=== PATIENT | female | born 1985 | race Caucasian/White ===

== ENCOUNTER 2018-12-27 20:28 | Inpatient (IN) | payer OTHER ==
[~2018-12-27] VITALS: Ht 165.1 cm; Wt 72.7 kg
[2018-12-28] VITALS (21 sets, daily range): BP systolic 75–117; BP diastolic 41–76; PULSE 44–71; RESP 16–23; Ht 165.1 cm; Wt 72.7 kg
[2018-12-28] MEDS ORDERED: DEXTROSE 5%-0.45% NACL 1,000 ML IV SCH (03:08)
[2018-12-28] MEDS ORDERED: NACL 0.9% 3 ML SYG IV SCH (03:30)
[2018-12-28] MEDS ORDERED: ONDANSETRON 4 MG INJ IV PRN ×2 (03:30→12:00)
[2018-12-28] MEDS: ACETAMINOPHEN 325 MG TAB PO PRN ×3 (03:38→20:36)
[2018-12-28] MEDS ORDERED: PANTOPRAZOLE 40 MG INJ IV SCH ×2 (06:00→18:00)
--- NOTE | 2018-12-28 06:13 | HP ---
Date/Time of Note Date/Time of Note DATE: 12/28/18 TIME: 06:10 Assessment/Plan VTE Prophylaxis Pharmacological prophylaxis: heparin Lines/Catheters IV [facility]ter Type ([facility] [place] Assessment/Plan Assessment/Plan 1. GI bleed: Positive for for FOBT at outside hospital -Patient has been taking NSAIDs -Repeat stool OB -PPI -Monitor H&H closely -GI consult 2. Epigastric abdominal pain: Gastritis versus PUD -Patient has been taking NSAIDs so this could be the etiology -PPI -See #1 as well HPI/ROS Admit Date/Time Admit Date/Time Dec 28, 2018 at 01:16 Hx of Present Illness Patient is a 33-year-old female with no significant past medical history who initially presented on outside hospital complaining of abdominal pain. Pain is mostly centered in the epigastric area. She reported that she has been taking NSAIDs. FOBT was positive at the outside facility. She was transferred to [facility] for insurance reason. PMH/Family/Social Past Medical History Past Surgical Hx: other Family History Significant Family History: no pertinent family hx Social History Alcohol Use: none Smoking Status: Never smoker Drug Use: none Exam Constitutional: other (No acute distress) Head: normocephalic, atraumatic Eyes: EOMI, PERRL Respiratory: clear to auscultation, normal air movement Cardiovascular: regular rate and rhythm Gastrointestinal: soft Extremities: normal pulses Medications Current Medications Dextrose/Sodium Chloride 1,000 ml @ 100 mls/hr Q10H IV Last administered on 12/28/18at 03:32; Admin Dose 100 MLS/HR; Start 12/28/18 at 03:08 IV Flush (NS 3 ml) 3 ml PER PROTOCOL IV ; Start 12/28/18 at 03:30 Ondansetron HCl (Zofran Inj) 4 mg Q6H PRN IV NAUSEA/VOMITING; Start 12/28/18 at 03:30 Acetaminophen (Tylenol Tab) 650 mg Q6H PRN PO .PAIN 1-3 OR TEMP Last administered on 12/28/18at 03:38; Admin Dose 650 MG; Start 12/28/18 at 03:30 Pantoprazole (Protonix Iv) 40 mg DAILY@06 IV ; Start 12/28/18 at 06:00 Coded Allergies: No Known Allergy (Unverified , 12/28/18) Social History Smoking Status: Never smoker Exam/Review of Systems Vital Signs Vitals Vital Signs Date Temp Pulse Resp B/P (MAP) Pulse Ox O2 O2 Flow FiO2 Time Delivery Rate 12/28/18 99.2 70 19 96/63 (74 95 02:47 JENNIE BUCK MD Dec 28, 2018 06:13
[2018-12-28] MEDS ORDERED: SOD CHLORIDE 0.9% 1,000 ML IV ONE (08:00)
[2018-12-28] MEDS ORDERED: POTASSIUM CHLORIDE 100 ML IVPB SCH (08:00)
--- NOTE | 2018-12-28 08:54 | PN ---
Date/Time of Note Date/Time of Note DATE: 12/28/18 TIME: 08:54 Objective Vitals Vital Signs Date Temp Pulse Resp B/P (MAP) Pulse Ox O2 O2 Flow FiO2 Time Delivery Rate 12/28/18 61 90/62 (71) 07:46 12/28/18 98.3 20 99 07:08 Intake and Output 12/27/18 12/27/18 12/28/18 1515:00 23:00 07:00 IntakeIntake Total 700 ml BalanceBalance 700 ml Results Result Diagram: 12/28/18 0514 12/28/18 0514 Medications Medications Current Medications Dextrose/Sodium Chloride 1,000 ml @ 100 mls/hr Q10H IV Last administered on 12/28/18at 03:32; Admin Dose 100 MLS/HR; Start 12/28/18 at 03:08 IV Flush (NS 3 ml) 3 ml PER PROTOCOL IV ; Start 12/28/18 at 03:30 Ondansetron HCl (Zofran Inj) 4 mg Q6H PRN IV NAUSEA/VOMITING; Start 12/28/18 at 03:30 Acetaminophen (Tylenol Tab) 650 mg Q6H PRN PO .PAIN 1-3 OR TEMP Last adminis tered on 12/28/18at 03:38; Admin Dose 650 MG; Start 12/28/18 at 03:30 Sodium Chloride 1,000 ml @ 1,000 mls/hr Q1H ONCE IV Last administered on 12/28/18at 08:09; Admin Dose 1,000 MLS/HR; Start 12/28/18 at 08:00; Stop 12/28/18 at 08:59 Potassium Chloride 100 ml @ 50 mls/hr Q2H IVPB Last administered on 12/28/18at 08:10; Admin Dose 50 MLS/HR; Start 12/28/18 at 08:00; Stop 12/28/18 at 13:59 Pantoprazole (Protonix Iv) 40 mg BID IV ; Start 12/28/18 at 09:00; Status UNV Lines/Catheters IV Catheter Type: Romero in Place: No Assessment/Plan Hospital Course Short progress note as H&P was done earlier today. GI has been consulted for possible EGD. PPI twice a day. Patient was diagnosed with UTI at transferring facility, will continue IV antibiotic for now. Pending GI consultation. ELSA ANGUIANO 6, 2019 08:54
[2018-12-28] MEDS ORDERED: POTASSIUM CHLORIDE 10 MEQ in DEXTROSE 5%-0.45% NACL 1,000 ML IV SCH (09:16)
[2018-12-28] MEDS ORDERED: POTASSIUM CHLORIDE (SR) 20 MEQ TAB PO STA (09:20)
[2018-12-28] MEDS: CEFTRIAXONE 1 GM/50 ML (PMX) 50 ML IVPB SCH (09:34)
[2018-12-28] MEDS: D5W-0.45 NACL + KCL 10 MEQ 1,000 ML IV SCH ×2 (10:21→23:17)
--- NOTE | 2018-12-28 11:20 | CONS ---
Assessment/Plan Assessment/Plan Assessment/Plan (Daily) Impression: Severe epigastric pain. Rule out peptic ulcer disease/gastritis/GERD Recent UTI. Obesity. Plan: EGD now. Further recommendations will depend on our findings. Consultation Date/Type/Reason Admit Date/Time Dec 28, 2018 at 01:16 Date of Consultation: Dec 28, 2018 Type of Consult Gastroenterology Reason for Consultation Abdominal pain Date/Time of Note DATE: 12/28/18 TIME: 11:14 Hx of Present Illness 33-year-old female previously healthy. The patient experienced severe fevers secondary to urinary tract infection. She treated her symptoms with large quantities of naproxen and developed significant epigastric abdominal pain described as burning sensation. There is also nausea, no vomiting, no overt gas or intestinal bleeding. Stool however is OB positive. Urinary tract infection has been treated patient feels better but the abdominal pain has persisted. At this point patient will be evaluated endoscopically and further recommendation will depend on our findings. The procedure has been explained in detail to the patient including risks, benefits and alternatives. She is agreeable to proceed. Review of Systems: [A 12 system, review was conducted and is negative except as noted in the HPI or here.] Past Medical History Recent UTI Medications Current Medications IV Flush (NS 3 ml) 3 ml PER PROTOCOL IV ; Start 12/28/18 at 03:30 Ondansetron HCl (Zofran Inj) 4 mg Q6H PRN IV NAUSEA/VOMITING; Start 12/28/18 at 03:30 Acetaminophen (Tylenol Tab) 650 mg Q6H PRN PO .PAIN 1-3 OR TEMP Last administered on 12/28/18at 09:45; Admin Dose 650 MG; Start 12/28/18 at 03:30 Pantoprazole (Protonix Iv) 40 mg BID@0600,1800 IV ; Start 12/28/18 at 18:00 Ceftriaxone Sodium 50 ml @ 100 mls/hr Q24H IVPB Last administered on 12/28/18at 09:34; Admin Dose 100 MLS/HR; Start 12/28/18 at 09:00 Potassium Chloride/Dextrose/ Sod Cl 1,000 ml @ 100 mls/hr Q10H IV Last administered on 12/28/18at 10:21; Admin Dose 100 MLS/HR; Start 12/28/18 at 10:00 Morphine Sulfate (morphine) 2 mg Q4H PRN IV SEVERE PAIN LEVEL 7-10; Start 12/28/18 at 10:00 Allergies: Coded Allergies: Unknown: Unable to obtain (Unverified , 12/28/18) Past Surgical History Past Surgical Hx: no surgical history Family History Significant Family History: no pertinent family hx Social History Alcohol Use: rarely Smoking Status: Never smoker Drug Use: none Exam/Review of Systems Exam Vitals Vital Signs Date Temp Pulse Resp B/P (MAP) Pulse Ox O2 O2 Flow FiO2 Time Delivery Rate 12/28/18 61 90/62 (71) 07:46 12/28/18 98.3 20 99 07:08 Intake and Output 12/27/18 12/27/18 12/28/18 1515:00 23:00 07:00 IntakeIntake Total 700 ml BalanceBalance 700 ml Exam PHYSICAL EXAMINATION: GENERAL: Well developed, well nourished, moderately obese, alert & oriented x 3, in no acute distress SKIN: No lesions, no stigmata chronic liver disease, no evidence of bleeding diathesis LYMPHATIC: No palpable lymphadenopathy. HEAD: Normocephalic, atraumatic, no tenderness. EYES: Pupils equal reactive to light and accommodation, full extraocular movements, sclera clear, non-icteric, no discharge. EARS/NOSE AND THROAT: Ears normal, nose normal, oropharynx normal, oral membranes well hydrated without lesions. NECK: Supple, no masses, thyroid normal, JVP within normal limits, carotids normal without bruits. CHEST: Inspection within normal limits. CARDIOVASCULAR: Heart: Regular rate and rhythm, no murmurs, gallops or rubs. Peripheral pulses present within normal limits, no cyanosis, clubbing or edemas. No pulsatile abdominal mass RESPIRATORY: Lungs clear to auscultation and percussion, no wheezing, no rubs GASTROINTESTINAL AND LIVER: Abdomen: Soft, moderate epigastric tenderness, non- distended, no hernias, no masses, no organomegaly, no ascites, no guarding, no rebound tenderness, normoactive bowel sounds. Rectal: Deferred. GENITOURINARY:[Female genitalia within normal limits.] EXTREMITIES: No cyanosis, clubbing or edema. Results Result Diagram: 12/28/18 0514 12/28/18 0514 Results 24hrs Laboratory Tests Test 12/28/18 05:14 12/28/18 10:09 White Blood Count 12.1 H Red Blood Count 3.22 L Hemoglobin 9.6 L Hematocrit 28.1 L Mean Corpuscular Volume 87.3 Mean Corpuscular Hemoglobin 29.8 Mean Corpuscular Hemoglobin Concent 34.2 Red Cell Distribution Width 13.2 Platelet Count 273 Mean Platelet Volume 9.7 Immature Granulocytes % 0.800 H Neutrophils % 77.7 H Lymphocytes % 12.7 L Monocytes % 8.3 Eosinophils % 0.2 Basophils % 0.3 Nucleated Red Blood Cells % 0.0 Immature Granulocytes # 0.100 H Neutrophils # 9.4 H Lymphocytes # 1.5 Monocytes # 1.0 H Eosinophils # 0.0 Basophils # 0.0 Nucleated Red Blood Cells # 0.0 Sodium Level 139 Potassium Level 2.8 *L Chloride Level 107 Carbon Dioxide Level 24 Anion Gap 8 Blood Urea Nitrogen 6 L Creatinine 0.82 Est Glomerular Filtrat Rate mL/min > 60 Glucose Level 106 Calcium Level 8.1 L Magnesium Level 2.1 Total Bilirubin 0.3 Direct Bilirubin 0.00 Indirect Bilirubin 0.3 Aspartate Amino Transf (AST/SGOT) 15 Alanine Aminotransferase (ALT/SGPT) 16 Alkaline Phosphatase 116 Total Protein 5.7 L Albumin 2.5 L Globulin 3.20 Albumin/Globulin Ratio 0.78 Urine Color YELLOW Urine Clarity CLEAR Urine pH 6.0 Urine Specific [place] 1.004 Urine Ketones NEGATIVE Urine Nitrite NEGATIVE Urine Bilirubin NEGATIVE Urine Urobilinogen NEGATIVE Urine Leukocyte Esterase 1+ H Urine Microscopic RBC 5 Urine Microscopic WBC 48 H Urine Bacteria FEW A Urine Hemoglobin 3+ H Urine Glucose NEGATIVE Urine Total Protein NEGATIVE Medications Medication Current Medications IV Flush (NS 3 ml) 3 ml PER PROTOCOL IV ; Start 12/28/18 at 03:30 Ondansetron HCl (Zofran Inj) 4 mg Q6H PRN IV NAUSEA/VOMITING; Start 12/28/18 at 03:30 Acetaminophen (Tylenol Tab) 650 mg Q6H PRN PO .PAIN 1-3 OR TEMP Last administered on 12/28/18at 09:45; Admin Dose 650 MG; Start 12/28/18 at 03:30 Pantoprazole (Protonix Iv) 40 mg BID@0600,1800 IV ; Start 12/28/18 at 18:00 Ceftriaxone Sodium 50 ml @ 100 mls/hr Q24H IVPB Last administered on 12/28/18at 09:34; Admin Dose 100 MLS/HR; Start 12/28/18 at 09:00 Potassium Chloride/Dextrose/ Sod Cl 1,000 ml @ 100 mls/hr Q10H IV Last administered on 12/28/18at 10:21; Admin Dose 100 MLS/HR; Start 12/28/18 at 10:00 Morphine Sulfate (morphine) 2 mg Q4H PRN IV SEVERE PAIN LEVEL 7-10; Start 12/28/18 at 10:00 BJORN MARTINEZ MD Dec 28, 2018 11:20
--- NOTE | 2018-12-28 11:25 | PREAC ---
Date/Time of Note Date/Time of Note DATE: 12/28/18 TIME: 11:24 Anesthesia Eval and Record Evaluation Time Pre-Procedure Interview DATE: 12/28/18 TIME: 11:24 Age 33 Sex female NPO: 8 hrs Preoperative diagnosis upper gi bleed Planned procedure egd Past Medical History Past Medical History: None Surgery & Anesthesia Issues No known issue Meds Anticoagulation: No Beta Kurtis within 24 hr: No Reason Beta Kurtis not given: Pt. not on B-Kurtis Current Medications IV Flush (NS 3 ml) 3 ml PER PROTOCOL IV ; Start 12/28/18 at 03:30 Ondansetron HCl (Zofran Inj) 4 mg Q6H PRN IV NAUSEA/VOMITING; Start 12/28/18 at 03:30 Acetaminophen (Tylenol Tab) 650 mg Q6H PRN PO .PAIN 1-3 OR TEMP Last administered on 12/28/18at 09:45; Admin Dose 650 MG; Start 12/28/18 at 03:30 Pantoprazole (Protonix Iv) 40 mg BID@0600,1800 IV ; Start 12/28/18 at 18:00 Ceftriaxone Sodium 50 ml @ 100 mls/hr Q24H IVPB Last administered on 12/28/18at 09:34; Admin Dose 100 MLS/HR; Start 12/28/18 at 09:00 Potassium Chloride/Dextrose/ Sod Cl 1,000 ml @ 100 mls/hr Q10H IV Last administered on 12/28/18at 10:21; Admin Dose 100 MLS/HR; Start 12/28/18 at 10:00 Morphine Sulfate (morphine) 2 mg Q4H PRN IV SEVERE PAIN LEVEL 7-10; Start 12/28/18 at 10:00 Meds reviewed: Yes Allergies Coded Allergies: Unknown: Unable to obtain (Unverified , 12/28/18) Allergies Reviewed: Yes Labs/Studies Labs Reviewed: Reviewed by anesthesiologist Result Diagram: 12/28/1814 12/28/1814 Laboratory Tests 12/28/18 05:14 test: Negative Pre-procedure Exam Last vitals Vital Signs Date Temp Pulse Resp B/P (MAP) Pulse Ox O2 O2 Flow FiO2 Time Delivery Rate 12/28/18 61 90/62 (71) 07:46 12/28/18 98.3 20 99 07:08 Airway: Adequate mouth opening, Adequate thyromental dist Mallampati: Mallampati II Teeth: Normal Lung: Normal Heart: Normal ASA Physical Status ASA physical status: 2 Emergency: None Planned Anesthetic General/MAC: MAC Planned Pain Management Parenteral pain med Pre-operative Attestations Prior to commencing anesthesia and surgery, the patient was re-evaluated, there was verification of: *The patient's identity *The results of appropriate recent lab work and preoperative vital signs *The above evaluation not changing prior to induction *Anesthetic plan, risk benefits, alternative and complications discussed with patient/family; questions answered; patient/family understands, accepts and wishes to proceed. PADMA GROVER Dec 28, 2018 11:25
[2018-12-28] MEDS ORDERED: LIDOCAINE 2% (SDV) 5 ML INJ ONE (11:26)
[2018-12-28] MEDS ORDERED: PROPOFOL 40 ML ONE (11:26)
[2018-12-28] MEDS ORDERED: PROPOFOL 200 MG INJ ONE (11:36)
--- NOTE | 2018-12-28 11:48 | PAC ---
Date/Time of Note Date/Time of Note DATE: 12/28/18 TIME: 11:47 Post-Anesthesia Notes Post-Anesthesia Note Last documented vital signs Vital Signs Date Temp Pulse Resp B/P (MAP) Pulse Ox O2 O2 Flow FiO2 Time Delivery Rate 12/28/18 98.1 61 90/62 (71) 99 1147 12/28/18 98.3 20 99 07:08 Activity: WNL Respiratory function: WNL Cardiovascular function: WNL Mental status: Baseline Pain reasonably controlled: Yes Hydration appropriate: Yes Nausea/Vomiting absent: Yes PADMA GROVER Dec 28, 2018 11:47
[2018-12-28] MEDS ORDERED: MEPERIDINE 25 MG INJ IV PRN (12:00)
[2018-12-28] MEDS ORDERED: LABETALOL HCL 20MG INJ IV PRN (12:00)
[2018-12-28] MEDS ORDERED: MIDAZOLAM 1 MG/ML 2 ML INJ IV PRN (12:00)
[2018-12-28] MEDS ORDERED: hydrALAzine 20 MG INJ IV PRN (12:00)
[2018-12-28] MEDS ORDERED: FENTAnyl 50 MCG/ML VIAL IV PRN ×2 (12:00)
[2018-12-28] MEDS ORDERED: DIPHENHYDRAMINE 50 MG INJ IV PRN (12:00)
[2018-12-28] MEDS ORDERED: EPHEDrine 25 MG/5 ML SYG IV PRN (12:00)
[2018-12-28] MEDS ORDERED: METOCLOPRAMIDE 10 MG INJ IV PRN (12:00)
[2018-12-28] MEDS: morphine 2 MG INJ IV PRN ×3 (12:18→22:49)
[2018-12-28] MEDS: SUCRALFATE (100 MG/ML) 10ML CUP PO SCH ×6 (13:00→20:37)
[2018-12-28] MEDS: PANTOPRAZOLE (EC) 40 MG TAB PO SCH (17:31)
[2018-12-29] VITALS: BP 93/60; PULSE 67; RESP 18
[2018-12-29 03:54] VITALS: BP 96/61; PULSE 58; RESP 18
[2018-12-29] MEDS: PANTOPRAZOLE (EC) 40 MG TAB PO SCH ×2 (06:26→17:52)
[2018-12-29] MEDS: ACETAMINOPHEN 325 MG TAB PO PRN ×2 (06:45→15:07)
[2018-12-29 07:21] VITALS: BP 108/56; PULSE 62; RESP 20
[2018-12-29] MEDS: SUCRALFATE (100 MG/ML) 10ML CUP PO SCH ×5 (08:23→20:19)
[2018-12-29] MEDS: CEFTRIAXONE 1 GM/50 ML (PMX) 50 ML IVPB SCH (08:23)
--- NOTE | 2018-12-29 12:10 | PN ---
Date/Time of Note Date/Time of Note DATE: 12/29/18 TIME: 12:07 Objective Vitals Vital Signs Date Temp Pulse Resp B/P (MAP) Pulse Ox O2 O2 Flow FiO2 Time Delivery Rate 12/29/18 98.3 62 20 108/56 98 07:21 (73) 12/29/18 Room Air 03:54 Intake and Output 12/28/18 12/28/18 12/29/18 1515:00 23:00 07:00 IntakeIntake Total 1070 ml 1150 ml 500 ml BalanceBalance 1070 ml 1150 ml 500 ml Results Result Diagram: 12/29/1833 12/29/1833 Medications Medications Current Medications IV Flush (NS 3 ml) 3 ml PER PROTOCOL IV ; Start 12/28/18 at 03:30 Ondansetron HCl (Zofran Inj) 4 mg Q6H PRN IV NAUSEA/VOMITING; Start 12/28/18 at 03:30 Acetaminophen (Tylenol Tab) 650 mg Q6H PRN PO .PAIN 1-3 OR TEMP Last administer ed on 12/29/18at 06:45; Admin Dose 650 MG; Start 12/28/18 at 03:30 Ceftriaxone Sodium 50 ml @ 100 mls/hr Q24H IVPB Last administered on 12/29/18at 08:23; Admin Dose 100 MLS/HR; Start 12/28/18 at 09:00 Morphine Sulfate (morphine) 2 mg Q4H PRN IV SEVERE PAIN LEVEL 7-10 Last administered on 12/28/18at 22:49; Admin Dose 2 MG; Start 12/28/18 at 10:00 Sucralfate (Carafate Susp) 1 gm QID PO Last administered on 12/29/18at 08:23; Admin Dose 1 GM; Start 12/28/18 at 13:00 Pantoprazole (Protonix Tab) 40 mg BID@06,18 PO Last administered on 12/29/18at 06:26; Admin Dose 40 MG; Start 12/28/18 at 18:00 VTE Prophylaxis Risk score (from Nsg)>0 risk: 0 SCD applied (from Nsg): No SCD contraindication: other Lines/Catheters IV Catheter Type: Romero in Place: No Assessment/Plan Hospital Course Subjective Patient feeling much better, mild abdominal pain Objective Physical exam General: Patient is laying in bed and answers questions appropriately Mentation: Patient is alert and oriented 4, Head: Normocephalic atraumatic Eyes: EOMI, pupils reactive to light Neck: Supple, nontender, midline Respiratory: Clear to auscultation bilaterally Cardiovascular: regular rate, no obvious murmurs Gastrointestinal: Mildly tender to palpation, bowel sounds heard. Neurological: Moves all extremities spontaneously Skin: No new skin lesions Assessment and plan Multiple small gastric ulcers -Secondary to taking too much NSAID secondary to UTI pain -EGD done, showing small gastric ulcers, no stigmata of bleeding -PPI twice daily -Carafate -Spoke with patient about dietary changes including non-spicy food, no caffeine, no soda Urinary tract infection -Fairly severe, resolving -Continue IV antibiotic -Due to the severity of the pain in the UTI actually causing above gastric ulcers, I recommended patient to stay until microbiology can be done stating sensitivities of antibiotic before discharge Anemia -Iron studies will be sent out Disposition -Continue to monitor diet and abdominal pain for gastric ulcers, await sensitivities for urinary tract infection before discharge, follow-up with iron studies. ELSA ANGUIANO Dec 29, 2018 12:10
--- NOTE | 2018-12-29 13:44 | PN ---
Date/Time of Note Date/Time of Note DATE: 12/29/18 TIME: 13:40 Assessment/Plan VTE Prophylaxis Risk score (from Nsg)>0 risk: 0 SCD applied (from Nsg): No SCD contraindicated: low risk/ambulating Pharmacological prophylaxis: NA/contraindicated Pharm contraindication: low risk/ambulating Lines/Catheters IV Catheter Type (from Nrs): Urinary Cath still in place: No Assessment/Plan Hospital Course Impression: Severe epigastric pain. EGD 12/28/2018 Multiple small gastric ulcerations with no stigmata of recent bleeding, no visible vessel. Rule out H. pylori infection, biopsies obtained. Otherwise normal EGD. Recent UTI. Obesity. Plan: PPI twice daily- x6 weeks Carafate 1 g 4 times daily Await bx results Follow-up EGD in 8 weeks to assess healing Patient seen in collaboration with Dr. Allen Subjective: Course reviewed with nursing staff Patient interviewed and examined All labs, imaging and other results reviewed The patient resting in bed, c/o some nausea no vomiting. She denies epigastric pain currently. I discussed results of EGD and recommendations. She verbalized understanding PHYSICAL EXAMINATION: GENERAL: Well developed, well nourished, moderately obese, alert & oriented x 3, in no acute distress SKIN: No lesions, no stigmata chronic liver disease, no evidence of bleeding diathesis HEAD: Normocephalic, atraumatic, no tenderness. EYES: Pupils equal reactive to light and accommodation, full extraocular movements, sclera clear, non-icteric, no discharge. EARS/NOSE AND THROAT: Ears normal, nose normal, oropharynx normal, oral memb ranes well hydrated without lesions. NECK: Supple, no masses, thyroid normal CHEST: Inspection within normal limits. CARDIOVASCULAR: Heart: Regular rate and rhythm, no murmurs, gallops or rubs. Peripheral pulses present within normal limits, no cyanosis, clubbing or edemas. No pulsatile abdominal mass RESPIRATORY: Lungs clear to auscultation and percussion, no wheezing, no rubs GASTROINTESTINAL AND LIVER: Abdomen: Soft, moderate epigastric tenderness- resolved, non-distended, no hernias, no masses, no organomegaly, no ascites, no guarding, no rebound tenderness, normoactive bowel sounds. Rectal: Deferred. EXTREMITIES: No cyanosis, clubbing or edema. Result Diagram: 12/29/18 0533 12/29/18 0533 Results 24hrs Laboratory Tests Test 12/29/18 05:33 White Blood Count 6.9 # Red Blood Count 3.09 L Hemoglobin 9.1 L Hematocrit 27.2 L Mean Corpuscular Volume 88.0 Mean Corpuscular Hemoglobin 29.4 Mean Corpuscular Hemoglobin Concent 33.5 Red Cell Distribution Width 13.2 Platelet Count 276 Mean Platelet Volume 9.4 Immature Granulocytes % 1.200 H Neutrophils % Segmented Neutrophils % (Manual) 58 Band Neutrophils % (Manual) 8 H Lymphocytes % Lymphocytes % (Manual) 23 Reactive Lymphocytes % (Manual) 2 H Monocytes % Monocytes % (Manual) 5 Eosinophils % Eosinophils % (Manual) 1 Basophils % Basophils % (Manual) 1 Metamyelocytes % (manual) 1 H Myelocytes % (Manual) 1 H Nucleated Red Blood Cells % 0.0 Immature Granulocytes # 0.080 H Neutrophils # Neutrophils # (Manual) 4.0 Band Neutrophils # 0.5 Lymphocytes (Manual) 1.5 Lymphocytes # Reactive Lymphocytes # 0.1 H Monocytes # Monocytes # (Manual) 0.3 Eosinophils # Basophils # Basophils # (Manual) 0.0 Metamyelocytes # 0.0 Myelocytes # 0.0 Nucleated Red Blood Cells # Platelet Estimate NORMAL Polychromasia 3+ Poikilocytosis 1+ Anisocytosis 1+ Sodium Level 142 Potassium Level 3.7 Chloride Level 110 Carbon Dioxide Level 25 Anion Gap 7 Blood Urea Nitrogen 4 L Creatinine 0.74 Est Glomerular Filtrat Rate mL/min > 60 Glucose Level 99 Calcium Level 7.9 L Phosphorus Level 3.4 Magnesium Level 2.3 Exam/Review of Systems Exam Vitals Vital Signs Date Temp Pulse Resp B/P (MAP) Pulse Ox O2 O2 Flow FiO2 Time Delivery Rate 12/29/18 98.3 62 20 108/56 98 07:21 (73) 12/29/18 Room Air 03:54 Intake and Output 12/28/18 12/28/18 12/29/18 1515:00 23:00 07:00 IntakeIntake Total 1070 ml 1150 ml 500 ml BalanceBalance 1070 ml 1150 ml 500 ml Results Results 24hrs Laboratory Tests Test 12/29/18 05:33 White Blood Count 6.9 # Red Blood Count 3.09 L Hemoglobin 9.1 L Hematocrit 27.2 L Mean Corpuscular Volume 88.0 Mean Corpuscular Hemoglobin 29.4 Mean Corpuscular Hemoglobin Concent 33.5 Red Cell Distribution Width 13.2 Platelet Count 276 Mean Platelet Volume 9.4 Immature Granulocytes % 1.200 H Neutrophils % Segmented Neutrophils % (Manual) 58 Band Neutrophils % (Manual) 8 H Lymphocytes % Lymphocytes % (Manual) 23 Reactive Lymphocytes % (Manual) 2 H Monocytes % Monocytes % (Manual) 5 Eosinophils % Eosinophils % (Manual) 1 Basophils % Basophils % (Manual) 1 Metamyelocytes % (manual) 1 H Myelocytes % (Manual) 1 H Nucleated Red Blood Cells % 0.0 Immature Granulocytes # 0.080 H Neutrophils # Neutrophils # (Manual) 4.0 Band Neutrophils # 0.5 Lymphocytes (Manual) 1.5 Lymphocytes # Reactive Lymphocytes # 0.1 H Monocytes # Monocytes # (Manual) 0.3 Eosinophils # Basophils # Basophils # (Manual) 0.0 Metamyelocytes # 0.0 Myelocytes # 0.0 Nucleated Red Blood Cells # Platelet Estimate NORMAL Polychromasia 3+ Poikilocytosis 1+ Anisocytosis 1+ Sodium Level 142 Potassium Level 3.7 Chloride Level 110 Carbon Dioxide Level 25 Anion Gap 7 Blood Urea Nitrogen 4 L Creatinine 0.74 Est Glomerular Filtrat Rate mL/min > 60 Glucose Level 99 Calcium Level 7.9 L Phosphorus Level 3.4 Magnesium Level 2.3 Medications Medication Current Medications IV Flush (NS 3 ml) 3 ml PER PROTOCOL IV ; Start 12/28/18 at 03:30 Ondansetron HCl (Zofran Inj) 4 mg Q6H PRN IV NAUSEA/VOMITING Last administered on 12/29/18at 12:54; Admin Dose 4 MG; Start 12/28/18 at 03:30 Acetaminophen (Tylenol Tab) 650 mg Q6H PRN PO .PAIN 1-3 OR TEMP Last administered on 12/29/18 06:45; Admin Dose 650 MG; Start 12/28/18 at 03:30 Ceftriaxone Sodium 50 ml @ 100 mls/hr Q24H IVPB Last administered on 12/29/18at 08:23; Admin Dose 100 MLS/HR; Start 12/28/18 at 09:00 Morphine Sulfate (morphine) 2 mg Q4H PRN IV SEVERE PAIN LEVEL 7-10 Last administered on 12/28/18at 22:49; Admin Dose 2 MG; Start 12/28/18 at 10:00 Sucralfate (Carafate Susp) 1 gm QID PO Last administered on 12/29/18at 12:53; Admin Dose 1 GM; Start 12/28/18 at 13:00 Pantoprazole (Protonix Tab) 40 mg BID@,18 PO Last administered on 12/29/18at 06:26; Admin Dose 40 MG; Start 12/28/18 at 18:00 REGINA CARRILLO Dec 29, 2018 13:44
[2018-12-29 15:05] VITALS: BP 113/67; PULSE 51; RESP 18
[2018-12-29] MEDS: morphine 2 MG INJ IV PRN ×2 (15:33→20:19)
[2018-12-29 19:19] VITALS: BP 123/75; PULSE 54; RESP 18
[2018-12-30] MEDS: morphine 2 MG INJ IV PRN (00:53)
[2018-12-30 01:40] VITALS: BP 105/65; PULSE 56; RESP 18
[2018-12-30] MEDS: ACETAMINOPHEN 325 MG TAB PO PRN ×3 (03:29→19:51)
[2018-12-30] MEDS: PANTOPRAZOLE (EC) 40 MG TAB PO SCH ×2 (07:13→17:42)
[2018-12-30 07:15] VITALS: BP 104/62; PULSE 68; RESP 19
[2018-12-30] MEDS: SUCRALFATE (100 MG/ML) 10ML CUP PO SCH ×4 (08:33→23:12)
[2018-12-30] MEDS: CEFTRIAXONE 1 GM/50 ML (PMX) 50 ML IVPB SCH (08:33)
--- NOTE | 2018-12-30 11:35 | PN ---
Date/Time of Note Date/Time of Note DATE: 12/30/18 TIME: 11:31 Assessment/Plan VTE Prophylaxis Risk score (from Ns)>0 risk: 0 SCD applied (from Ns): No SCD contraindicated: low risk/ambulating Pharmacological prophylaxis: NA/contraindicated Pharm contraindication: bleeding Lines/Catheters [facility]from [facility] Saline Lock Urinary Cath still in place: No Assessment/Plan Assessment/Plan 1. Multiple small gastric ulcers - Seen on EGD and appreciate GI consultation. Will continue on PPI and Carafate - secondary to overuse of NSAIDs - Spoke with patient about dietary changes including non-spicy food, no caffeine, no soda 2. UTI - improving on Rocephin - Urine culture does not appear to have been ordered. Will add to specimen in lab if possible. Discussed with patient best to await sensitivities in order to treat UTI effectively 3, Anemia. iron deficiency - Iron studies noted. Will start on PO iron supplements 4. Disposition - Awaiting urine culture results and once able to transition to PO antibiotics based on sensitivities, will d/c home. Result Diagram: 12/30/1890412/30/18904 Results 24hrs Laboratory Tests Test 12/29/18 11:34 12/30/18 09:05 Stool Occult Blood POSITIVE White Blood Count 7.1 Red Blood Count 3.28 L Hemoglobin 9.7 L Hematocrit 29.4 L Mean Corpuscular Volume 89.6 Mean Corpuscular Hemoglobin 29.6 Mean Corpuscular Hemoglobin Concent 33.0 Red Cell Distribution Width 13.1 Platelet Count 367 # Mean Platelet Volume 9.0 Immature Granulocytes % 1.100 H Neutrophils % 65.3 Lymphocytes % 26.5 Monocytes % 5.6 Eosinophils % 1.1 Basophils % 0.4 Nucleated Red Blood Cells % 0.0 Immature Granulocytes # 0.080 H Neutrophils # 4.7 Lymphocytes # 1.9 Monocytes # 0.4 Eosinophils # 0.1 Basophils # 0.0 Nucleated Red Blood Cells # 0.0 Sodium Level 140 Potassium Level 3.8 Chloride Level 107 Carbon Dioxide Level 26 Anion Gap 7 Blood Urea Nitrogen 10 Creatinine 0.83 Est Glomerular Filtrat Rate mL/min > 60 Glucose Level 92 Calcium Level 8.3 L Phosphorus Level 4.6 Magnesium Level 2.2 Iron Level 34 L Total Iron Binding Capacity 239 L Percent Iron Saturation 14 L Subjective 24 Hr Interval Summary Free Text/Dictation Patient states her dysuria is improving and only experiencing discomfort from GERD. No acute overnight events. Exam/Review of Systems Exam Vitals Vital Signs Date Temp Pulse Resp B/P (MAP) Pulse Ox O2 O2 Flow FiO2 Time Delivery Rate 12/30/18 98.2 68 19 104/62 98 07:15 (76) 12/30/18 Room Air 01:40 Intake and Output 12/29/18 12/29/18 12/30/18 1414:59 22:59 06:59 IntakeIntake Total 900 ml 150 ml 1600 ml BalanceBalance 900 ml 150 ml 1600 ml Exam General: Patient is laying in bed and answers questions appropriately. no acute distress Neck: Supple Respiratory: Clear to auscultation bilaterally. no wheezing or rhonchi Cardiovascular: regular rate and rhythm, no obvious murmurs Gastrointestinal: Mildly tender to palpation in epigastric area, nondistended, bowel sounds heard. Neurological: Moves all extremities spontaneously Skin: No new skin lesions Results Results 24hrs Laboratory Tests Test 12/29/18 11:34 12/30/18 09:05 Stool Occult Blood POSITIVE White Blood Count 7.1 Red Blood Count 3.28 L Hemoglobin 9.7 L Hematocrit 29.4 L Mean Corpuscular Volume 89.6 Mean Corpuscular Hemoglobin 29.6 Mean Corpuscular Hemoglobin Concent 33.0 Red Cell Distribution Width 13.1 Platelet Count 367 # Mean Platelet Volume 9.0 Immature Granulocytes % 1.100 H Neutrophils % 65.3 Lymphocytes % 26.5 Monocytes % 5.6 Eosinophils % 1.1 Basophils % 0.4 Nucleated Red Blood Cells % 0.0 Immature Granulocytes # 0.080 H Neutrophils # 4.7 Lymphocytes # 1.9 Monocytes # 0.4 Eosinophils # 0.1 Basophils # 0.0 Nucleated Red Blood Cells # 0.0 Sodium Level 140 Potassium Level 3.8 Chloride Level 107 Carbon Dioxide Level 26 Anion Gap 7 Blood Urea Nitrogen 10 Creatinine 0.83 Est Glomerular Filtrat Rate mL/min > 60 Glucose Level 92 Calcium Level 8.3 L Phosphorus Level 4.6 Magnesium Level 2.2 Iron Level 34 L Total Iron Binding Capacity 239 L Percent Iron Saturation 14 L Medications Medication Current Medications IV Flush (NS 3 ml) 3 ml PER PROTOCOL IV ; Start 12/28/18 at 03:30 Ondansetron HCl (Zofran Inj) 4 mg Q6H PRN IV NAUSEA/VOMITING Last administered on 12/29/18 12:54; Admin Dose 4 MG; Start 12/28/18 at 03:30 Acetaminophen (Tylenol Tab) 650 mg Q6H PRN PO .PAIN 1-3 OR TEMP Last administered on 12/30/18 09:32; Admin Dose 650 MG; Start 12/28/18 at 03:30 Ceftriaxone Sodium 50 ml @ 100 mls/hr Q24H IVPB Last administered on 12/30/18 08:33; Admin Dose 100 MLS/HR; Start 12/28/18 at 09:00 Morphine Sulfate (morphine) 2 mg Q4H PRN IV SEVERE PAIN LEVEL 7-10 Last administered on 12/30/18 00:53; Admin Dose 2 MG; Start 12/28/18 at 10:00 Sucralfate (Carafate Susp) 1 gm QID PO Last administered on 12/30/18 08:33; Admin Dose 1 GM; Start 12/28/18 at 13:00 Pantoprazole (Protonix Tab) 40 mg BID@06,18 PO Last administered on 12/30/18 07:13; Admin Dose 40 MG; Start 12/28/18 at 18:00 Ferrous Sulfate (Ferrous Sulfate (Ec)) 325 mg DAILY PO ; Start 12/31/18 at 09:00 SUMAN MAN MD Dec 30, 2018 11:35
--- NOTE | 2018-12-30 16:43 | PN ---
Date/Time of Note Date/Time of Note DATE: 12/30/18 TIME: 16:34 Assessment/Plan VTE Prophylaxis Risk score (from Nsg)>0 risk: 0 SCD applied (from Ns): No SCD contraindicated: low risk/ambulating, other Pharmacological prophylaxis: NA/contraindicated Pharm contraindication: low risk/ambulating Lines/Catheters [facility] Saline Lock Urinary Cath still in place: No Assessment/Plan Hospital Course Impression: Severe epigastric pain. EGD 12/28/2018 Multiple small gastric ulcerations with no stigmata of recent bleeding, no v isible vessel. Rule out H. pylori infection, biopsies obtained. Otherwise normal EGD. Recent UTI- pending urine culture Plan: PPI twice daily- x6 weeks Carafate 1 g 4 times daily- x 4weeks Await bx results Follow-up EGD in 8 weeks to assess healing- Pt to f/u with GI after d/c pt cleared for d/c from GI point of view Patient seen in collaboration with Dr. Allen Subjective: Course reviewed with nursing staff Patient interviewed and examined All labs, imaging and other results reviewed Pt feels very well, no c.o n.v or abdominal pain currently She is tolerating her diet well, no over night events. PHYSICAL EXAMINATION: GENERAL: Well developed, well nourished, moderately obese, alert & oriented x 3, in no acute distress SKIN: No lesions, no stigmata chronic liver disease, no evidence of bleeding diathesis HEAD: Normocephalic, atraumatic, no tenderness. EYES: Pupils equal reactive to light and accommodation, full extraocular movements, sclera clear, non-icteric, no discharge. EARS/NOSE AND THROAT: Ears normal, nose normal, oropharynx normal, oral membranes well hydrated without lesions. NECK: Supple, no masses, thyroid normal CHEST: Inspection within normal limits. CARDIOVASCULAR: Heart: Regular rate and rhythm, no murmurs, gallops or rubs. Peripheral pulses present within normal limits, no cyanosis, clubbing or edemas. No pulsatile abdominal mass RESPIRATORY: Lungs clear to auscultation and percussion, no wheezing, no rubs GASTROINTESTINAL AND LIVER: Abdomen: Soft, moderate epigastric tenderness- resolved, non-distended, no hernias, no masses, no organomegaly, no ascites, no guarding, no rebound tenderness, normoactive bowel sounds. Rectal: Deferred. EXTREMITIES: No cyanosis, clubbing or edema. Result Diagram: 12/30/1890412/30/1805 Results 24hrs Laboratory Tests Test 12/30/18 09:05 White Blood Count 7.1 Red Blood Count 3.28 L Hemoglobin 9.7 L Hematocrit 29.4 L Mean Corpuscular Volume 89.6 Mean Corpuscular Hemoglobin 29.6 Mean Corpuscular Hemoglobin Concent 33.0 Red Cell Distribution Width 13.1 Platelet Count 367 # Mean Platelet Volume 9.0 Immature Granulocytes % 1.100 H Neutrophils % 65.3 Lymphocytes % 26.5 Monocytes % 5.6 Eosinophils % 1.1 Basophils % 0.4 Nucleated Red Blood Cells % 0.0 Immature Granulocytes # 0.080 H Neutrophils # 4.7 Lymphocytes # 1.9 Monocytes # 0.4 Eosinophils # 0.1 Basophils # 0.0 Nucleated Red Blood Cells # 0.0 Sodium Level 140 Potassium Level 3.8 Chloride Level 107 Carbon Dioxide Level 26 Anion Gap 7 Blood Urea Nitrogen 10 Creatinine 0.83 Est Glomerular Filtrat Rate mL/min > 60 Glucose Level 92 Calcium Level 8.3 L Phosphorus Level 4.6 Magnesium Level 2.2 Iron Level 34 L Total Iron Binding Capacity 239 L Percent Iron Saturation 14 L Exam/Review of Systems Exam Vitals Vital Signs Date Temp Pulse Resp B/P (MAP) Pulse Ox O2 O2 Flow FiO2 Time Delivery Rate 12/30/18 98.2 68 19 104/62 98 07:15 (76) 12/30/18 Room Air 01:40 Intake and Output 12/29/18 12/29/18 12/30/18 1515:00 23:00 07:00 IntakeIntake Total 900 ml 150 ml 1600 ml BalanceBalance 900 ml 150 ml 1600 ml Results Results 24hrs Laboratory Tests Test 12/30/18 09:05 White Blood Count 7.1 Red Blood Count 3.28 L Hemoglobin 9.7 L Hematocrit 29.4 L Mean Corpuscular Volume 89.6 Mean Corpuscular Hemoglobin 29.6 Mean Corpuscular Hemoglobin Concent 33.0 Red Cell Distribution Width 13.1 Platelet Count 367 # Mean Platelet Volume 9.0 Immature Granulocytes % 1.100 H Neutrophils % 65.3 Lymphocytes % 26.5 Monocytes % 5.6 Eosinophils % 1.1 Basophils % 0.4 Nucleated Red Blood Cells % 0.0 Immature Granulocytes # 0.080 H Neutrophils # 4.7 Lymphocytes # 1.9 Monocytes # 0.4 Eosinophils # 0.1 Basophils # 0.0 Nucleated Red Blood Cells # 0.0 Sodium Level 140 Potassium Level 3.8 Chloride Level 107 Carbon Dioxide Level 26 Anion Gap 7 Blood Urea Nitrogen 10 Creatinine 0.83 Est Glomerular Filtrat Rate mL/min > 60 Glucose Level 92 Calcium Level 8.3 L Phosphorus Level 4.6 Magnesium Level 2.2 Iron Level 34 L Total Iron Binding Capacity 239 L Percent Iron Saturation 14 L Medications Medication Current Medications IV Flush (NS 3 ml) 3 ml PER PROTOCOL IV ; Start 12/28/18 at 03:30 Ondansetron HCl (Zofran Inj) 4 mg Q6H PRN IV NAUSEA/VOMITING Last administered on 12/29/18 12:54; Admin Dose 4 MG; Start 12/28/18 at 03:30 Acetaminophen (Tylenol Tab) 650 mg Q6H PRN PO .PAIN 1-3 OR TEMP Last administered on 12/30/18 09:32; Admin Dose 650 MG; Start 12/28/18 at 03:30 Ceftriaxone Sodium 50 ml @ 100 mls/hr Q24H IVPB Last administered on 12/30/18 08:33; Admin Dose 100 MLS/HR; Start 12/28/18 at 09:00 Morphine Sulfate (morphine) 2 mg Q4H PRN IV SEVERE PAIN LEVEL 7-10 Last administered on 12/30/18 00:53; Admin Dose 2 MG; Start 12/28/18 at 10:00 Sucralfate (Carafate Susp) 1 gm QID PO Last administered on 12/30/18 13:23; Admin Dose 1 GM; Start 12/28/18 at 13:00 Pantoprazole (Protonix Tab) 40 mg BID@06,18 PO Last administered on 12/30/18 07:13; Admin Dose 40 MG; Start 12/28/18 at 18:00 Ferrous Sulfate (Ferrous Sulfate (Ec)) 325 mg DAILY PO ; Start 12/31/18 at 09:00 REGINA CARRILLO Dec 30, 2018 16:43
[2018-12-30 19:50] VITALS: BP 109/60; PULSE 63; RESP 18
[2018-12-31 01:58] VITALS: BP 97/61; PULSE 51; RESP 18
[2018-12-31 07:26] VITALS: BP 101/68; PULSE 72; RESP 20
[2018-12-31] MEDS: PANTOPRAZOLE (EC) 40 MG TAB PO SCH ×2 (08:35→17:36)
[2018-12-31] MEDS: CEFTRIAXONE 1 GM/50 ML (PMX) 50 ML IVPB SCH (08:35)
[2018-12-31] MEDS: FERROUS SULFATE (EC) 325 MG TAB PO SCH (08:35)
[2018-12-31] MEDS: SUCRALFATE (100 MG/ML) 10ML CUP PO SCH ×4 (08:35→21:14)
--- NOTE | 2018-12-31 12:18 | PN ---
Date/Time of Note Date/Time of Note DATE: 12/31/18 TIME: 12:14 Assessment/Plan VTE Prophylaxis Risk score (from Ns)>0 risk: 3 SCD applied (from Nsg): Yes Pharmacological prophylaxis: NA/contraindicated Pharm contraindication: low risk/ambulating Lines/Catheters IV Catheter Type (from [facility]): Saline Lock Urinary Cath still in place: No Assessment/Plan Hospital Course Impression: Severe epigastric pain. EGD 12/28/2018 Multiple small gastric ulcerations with no stigmata of recent bleeding, no visible vessel. Rule out H. pylori infection, biopsies obtained. Otherwise normal EGD. Gastric ulcer biopsy: -- Chronic gastritis, moderate to severe, involving oxyntopyloric and pyloric mucosa. -- No Helicobacter organisms are identified in a Giemsa stain (positive control concurrently reviewed). -- Isolated lymphoid aggregates in the lamina propria, without lymphoepithelial lesions. -- There is no evidence of malignancy. Recent UTI- pending urine culture Plan: PPI twice daily- x6 weeks Carafate 1 g 4 times daily- x 4weeks Await bx results Follow-up EGD in 8 weeks to assess healing- Pt to f/u with GI after d/c pt cleared for d/c from GI point of view - GI will sign off but will be available upon reconsult as needed Patient seen in collaboration with Dr. Allen Subjective: Course reviewed with nursing staff Patient interviewed and examined All labs, imaging and other results reviewed Pt feels very well, no c.o n.v or abdominal pain currently She is tolerating her diet well, no over night events. Discussed results of Bx, patietn verbalized understanding PHYSICAL EXAMINATION: GENERAL: Well developed, well nourished, moderately obese, alert & oriented x 3, in no acute distress SKIN: No lesions, no stigmata chronic liver disease, no evidence of bleeding diathesis HEAD: Normocephalic, atraumatic, no tenderness. EYES: Pupils equal reactive to light and accommodation, full extraocular movements, sclera clear, non-icteric, no discharge. EARS/NOSE AND THROAT: Ears normal, nose normal, oropharynx normal, oral membranes well hydrated without lesions. NECK: Supple, no masses, thyroid normal CHEST: Inspection within normal limits. CARDIOVASCULAR: Heart: Regular rate and rhythm, no murmurs, gallops or rubs. Peripheral pulses present within normal limits, no cyanosis, clubbing or edemas. No pulsatile abdominal mass RESPIRATORY: Lungs clear to auscultation and percussion, no wheezing, no rubs GASTROINTESTINAL AND LIVER: Abdomen: Soft, moderate epigastric tenderness- resolved, non-distended, no hernias, no masses, no organomegaly, no ascites, no guarding, no rebound tenderness, normoactive bowel sounds. Rectal: Deferred. EXTREMITIES: No cyanosis, clubbing or edema. Result Diagram: 12/31/1842212/31/183 Results 24hrs Laboratory Tests Test 12/31/18 04:23 White Blood Count 6.5 Red Blood Count 3.76 L Hemoglobin 11.0 L Hematocrit 33.1 L Mean Corpuscular Volume 88.0 Mean Corpuscular Hemoglobin 29.3 Mean Corpuscular Hemoglobin Concent 33.2 Red Cell Distribution Width 12.7 Platelet Count 460 #H Mean Platelet Volume 8.9 Immature Granulocytes % 2.000 H Neutrophils % 62.7 Lymphocytes % 27.6 Monocytes % 5.4 Eosinophils % 1.7 Basophils % 0.6 Nucleated Red Blood Cells % 0.0 Immature Granulocytes # 0.130 H Neutrophils # 4.0 Lymphocytes # 1.8 Monocytes # 0.4 Eosinophils # 0.1 Basophils # 0.0 Nucleated Red Blood Cells # 0.0 Sodium Level 141 Potassium Level 3.8 Chloride Level 106 Carbon Dioxide Level 28 Anion Gap 7 Blood Urea Nitrogen 12 Creatinine 0.90 Glucose Level 98 Calcium Level 8.9 Phosphorus Level 4.3 Magnesium Level 2.3 Albumin 3.2 L Exam/Review of Systems Exam Vitals Vital Signs Date Temp Pulse Resp B/P (MAP) Pulse Ox O2 O2 Flow FiO2 Time Delivery Rate 12/31/18 98.2 72 20 101/68 98 07:26 (79) 12/31/18 Room Air 01:58 Intake and Output 12/30/18 12/30/18 12/31/18 1515:00 23:00 07:00 IntakeIntake Total 250 ml 970 ml 400 ml BalanceBalance 250 ml 970 ml 400 ml Results Results 24hrs Laboratory Tests Test 12/31/18 04:23 White Blood Count 6.5 Red Blood Count 3.76 L Hemoglobin 11.0 L Hematocrit 33.1 L Mean Corpuscular Volume 88.0 Mean Corpuscular Hemoglobin 29.3 Mean Corpuscular Hemoglobin Concent 33.2 Red Cell Distribution Width 12.7 Platelet Count 460 #H Mean Platelet Volume 8.9 Immature Granulocytes % 2.000 H Neutrophils % 62.7 Lymphocytes % 27.6 Monocytes % 5.4 Eosinophils % 1.7 Basophils % 0.6 Nucleated Red Blood Cells % 0.0 Immature Granulocytes # 0.130 H Neutrophils # 4.0 Lymphocytes # 1.8 Monocytes # 0.4 Eosinophils # 0.1 Basophils # 0.0 Nucleated Red Blood Cells # 0.0 Sodium Level 141 Potassium Level 3.8 Chloride Level 106 Carbon Dioxide Level 28 Anion Gap 7 Blood Urea Nitrogen 12 Creatinine 0.90 Glucose Level 98 Calcium Level 8.9 Phosphorus Level 4.3 Magnesium Level 2.3 Albumin 3.2 L Medications Medication Current Medications IV Flush (NS 3 ml) 3 ml PER PROTOCOL IV ; Start 12/28/18 at 03:30 Ondansetron HCl (Zofran Inj) 4 mg Q6H PRN IV NAUSEA/VOMITING Last administered on 12/29/18 12:54; Admin Dose 4 MG; Start 12/28/18 at 03:30 Acetaminophen (Tylenol Tab) 650 mg Q6H PRN PO .PAIN 1-3 OR TEMP Last administered on 12/30/18 19:51; Admin Dose 650 MG; Start 12/28/18 at 03:30 Ceftriaxone Sodium 50 ml @ 100 mls/hr Q24H IVPB Last administered on 12/31/18 08:35; Admin Dose 100 MLS/HR; Start 12/28/18 at 09:00 Morphine Sulfate (morphine) 2 mg Q4H PRN IV SEVERE PAIN LEVEL 7-10 Last administered on 12/30/18 00:53; Admin Dose 2 MG; Start 12/28/18 at 10:00 Sucralfate (Carafate Susp) 1 gm QID PO Last administered on 12/31/18 08:35; Admin Dose 1 GM; Start 12/28/18 at 13:00 Pantoprazole (Protonix Tab) 40 mg BID@06,18 PO Last administered on 12/31/18 08:35; Admin Dose 40 MG; Start 12/28/18 at 18:00 Ferrous Sulfate (Ferrous Sulfate (Ec)) 325 mg DAILY PO Last administered on 12/31/18 08:35; Admin Dose 325 MG; Start 12/31/18 at 09:00 REGINA CARRILLO Dec 31, 2018 12:18
--- NOTE | 2018-12-31 14:03 | PN ---
Date/Time of Note Date/Time of Note DATE: 12/31/18 TIME: 14:00 Assessment/Plan VTE Prophylaxis Risk score (from Ns)>0 risk: 3 SCD applied (from Nsg): Yes Pharmacological prophylaxis: NA/contraindicated Pharm contraindication: low risk/ambulating Lines/Catheters IV Catheter Type (from [facility]): Saline Lock Urinary Cath still in place: No Assessment/Plan Assessment/Plan 1. Multiple small gastric ulcers- stable - Seen on EGD and appreciate GI consultation. Will continue on PPI x6 weeks and Carafate x 4 weeks and follow up in 8 weeks for repeat EGD - secondary to overuse of NSAIDs - Spoke with patient about dietary changes including non-spicy food, no caffeine, no soda 2. UTI - improving on Rocephin - Urine culture showing no growth to date 3, Anemia. iron deficiency - Iron studies noted. Will start on PO iron supplements 4. Disposition - Will transition to PO antibiotics once flank pain improves and d/c home. Urine culture currently NGTD but will await final results Result Diagram: 12/31/18 0423 12/31/18 0423 Results 24hrs Laboratory Tests Test 12/31/18 04:23 White Blood Count 6.5 Red Blood Count 3.76 L Hemoglobin 11.0 L Hematocrit 33.1 L Mean Corpuscular Volume 88.0 Mean Corpuscular Hemoglobin 29.3 Mean Corpuscular Hemoglobin Concent 33.2 Red Cell Distribution Width 12.7 Platelet Count 460 #H Mean Platelet Volume 8.9 Immature Granulocytes % 2.000 H Neutrophils % 62.7 Lymphocytes % 27.6 Monocytes % 5.4 Eosinophils % 1.7 Basophils % 0.6 Nucleated Red Blood Cells % 0.0 Immature Granulocytes # 0.130 H Neutrophils # 4.0 Lymphocytes # 1.8 Monocytes # 0.4 Eosinophils # 0.1 Basophils # 0.0 Nucleated Red Blood Cells # 0.0 Sodium Level 141 Potassium Level 3.8 Chloride Level 106 Carbon Dioxide Level 28 Anion Gap 7 Blood Urea Nitrogen 12 Creatinine 0.90 Glucose Level 98 Calcium Level 8.9 Phosphorus Level 4.3 Magnesium Level 2.3 Albumin 3.2 L Subjective 24 Hr Interval Summary Free Text/Dictation Patient complaining of flank pain and concerned its caused by UTI. Would like to wait for urine culture results prior to discharge home. No further GI bleeding noted and abdominal pain improved Exam/Review of Systems Exam Vitals Vital Signs Date Temp Pulse Resp B/P (MAP) Pulse Ox O2 O2 Flow FiO2 Time Delivery Rate 12/31/18 98.2 72 20 101/68 98 07:26 (79) 12/31/18 Room Air 01:58 Intake and Output 12/30/18 12/30/18 12/31/18 1515:00 23:00 07:00 IntakeIntake Total 250 ml 970 ml 400 ml BalanceBalance 250 ml 970 ml 400 ml Exam General: Patient is laying in bed and answers questions appropriately. no acute distress Neck: Supple Respiratory: Clear to auscultation bilaterally. no wheezing or rhonchi Cardiovascular: regular rate and rhythm, no obvious murmurs Gastrointestinal: nontender to palpation, soft, nondistended, bowel sounds heard. + CVA tenderness Neurological: Moves all extremities spontaneously Skin: No new skin lesions Results Results 24hrs Laboratory Tests Test 12/31/18 04:23 White Blood Count 6.5 Red Blood Count 3.76 L Hemoglobin 11.0 L Hematocrit 33.1 L Mean Corpuscular Volume 88.0 Mean Corpuscular Hemoglobin 29.3 Mean Corpuscular Hemoglobin Concent 33.2 Red Cell Distribution Width 12.7 Platelet Count 460 #H Mean Platelet Volume 8.9 Immature Granulocytes % 2.000 H Neutrophils % 62.7 Lymphocytes % 27.6 Monocytes % 5.4 Eosinophils % 1.7 Basophils % 0.6 Nucleated Red Blood Cells % 0.0 Immature Granulocytes # 0.130 H Neutrophils # 4.0 Lymphocytes # 1.8 Monocytes # 0.4 Eosinophils # 0.1 Basophils # 0.0 Nucleated Red Blood Cells # 0.0 Sodium Level 141 Potassium Level 3.8 Chloride Level 106 Carbon Dioxide Level 28 Anion Gap 7 Blood Urea Nitrogen 12 Creatinine 0.90 Glucose Level 98 Calcium Level 8.9 Phosphorus Level 4.3 Magnesium Level 2.3 Albumin 3.2 L Medications Medication Current Medications IV Flush (NS 3 ml) 3 ml PER PROTOCOL IV ; Start 12/28/18 at 03:30 Ondansetron HCl (Zofran Inj) 4 mg Q6H PRN IV NAUSEA/VOMITING Last administered on 12/29/18at 12:54; Admin Dose 4 MG; Start 12/28/18 at 03:30 Acetaminophen (Tylenol Tab) 650 mg Q6H PRN PO .PAIN 1-3 OR TEMP Last administered on 12/30/18 19:51; Admin Dose 650 MG; Start 12/28/18 at 03:30 Ceftriaxone Sodium 50 ml @ 100 mls/hr Q24H IVPB Last administered on 12/31/18 08:35; Admin Dose 100 MLS/HR; Start 12/28/18 at 09:00 Morphine Sulfate (morphine) 2 mg Q4H PRN IV SEVERE PAIN LEVEL 7-10 Last administered on 12/30/18 00:53; Admin Dose 2 MG; Start 12/28/18 at 10:00 Sucralfate (Carafate Susp) 1 gm QID PO Last administered on 12/31/18 12:35; Admin Dose 1 GM; Start 12/28/18 at 13:00 Pantoprazole (Protonix Tab) 40 mg BID@06,18 PO Last administered on 12/31/18 08:35; Admin Dose 40 MG; Start 12/28/18 at 18:00 Ferrous Sulfate (Ferrous Sulfate (Ec)) 325 mg DAILY PO Last administered on 12/31/18 08:35; Admin Dose 325 MG; Start 12/31/18 at 09:00 USMAN MAN MD Dec 31, 2018 14:03
[2018-12-31 14:37] VITALS: BP 119/62; PULSE 68; RESP 19
[2018-12-31] MEDS: ACETAMINOPHEN 325 MG TAB PO PRN (17:39)
[2018-12-31 20:18] VITALS: BP 107/64; PULSE 60; RESP 18
[2018-12-31] MEDS: SALINE 0.65% 45 ML NAS SPRAY NASAL SCH (21:35)
[2019-01-01] MEDS: PANTOPRAZOLE (EC) 40 MG TAB PO SCH (06:53)
[2019-01-01 08:11] VITALS: BP 96/55; PULSE 76
[2019-01-01] MEDS: SALINE 0.65% 45 ML NAS SPRAY NASAL SCH (09:00)
[2019-01-01] MEDS: FERROUS SULFATE (EC) 325 MG TAB PO SCH (09:06)
[2019-01-01] MEDS: CEFTRIAXONE 1 GM/50 ML (PMX) 50 ML IVPB SCH (09:06)
[2019-01-01] MEDS: SUCRALFATE (100 MG/ML) 10ML CUP PO SCH ×2 (09:06→12:54)
[2019-01-01] MEDS ORDERED: CEPHALEXIN 500 MG CAP PO SCH (09:30)
--- NOTE | 2019-01-01 09:42 | PN ---
Date/Time of Note Date/Time of Note DATE: 01/01/19 TIME: 09:39 Assessment/Plan VTE Prophylaxis Risk score (from Ns)>0 risk: 3 SCD applied (from Ns): Yes Pharmacological prophylaxis: NA/contraindicated Pharm contraindication: low risk/ambulating Lines/Catheters IV Catheter Type (from Nrsg): Saline Lock Urinary Cath still in place: No Assessment/Plan Assessment/Plan 1. Multiple small gastric ulcers- stable - Seen on EGD and appreciate GI consultation. Will continue on PPI x6 weeks and Carafate x 4 weeks and follow up in 8 weeks for repeat EGD - secondary to overuse of NSAIDs 2. UTI - improving on Rocephin and will switch to Keflex PO. Will give for another 2.5 days to complete 7 day course - Urine culture showing no growth to date 3, Anemia. iron deficiency - Iron studies noted. Will start on PO iron supplements 4. Disposition - Medically stable for discharge home Result Diagram: 12/31/1842212/31/18422 Subjective 24 Hr Interval Summary Free Text/Dictation Patient is complaining of pain in right arm at site of previous IV insertion. No acute overnight events. Exam/Review of Systems Exam Vitals Vital Signs Date Temp Pulse Resp B/P (MAP) Pulse Ox O2 O2 Flow FiO2 Time Delivery Rate 01/01/19 97.8 76 96/55 (69) 96 Room Air 08:11 12/31/18 18 20:18 Intake and Output 12/31/18 12/31/18 01/01/19 1515:00 23:00 07:00 IntakeIntake Total 50 ml 830 ml 400 ml BalanceBalance 50 ml 830 ml 400 ml Exam General: Patient is laying in bed. no acute distress Neck: Supple Respiratory: Clear to auscultation bilaterally. no wheezing or rhonchi Cardiovascular: regular rate and rhythm, no obvious murmurs Gastrointestinal: nontender to palpation, soft, nondistended, bowel sounds heard. Neurological: Moves all extremities spontaneously Skin: No new skin lesions Medications Medication Current Medications IV Flush (NS 3 ml) 3 ml PER PROTOCOL IV ; Start 12/28/18 at 03:30 Ondansetron HCl (Zofran Inj) 4 mg Q6H PRN IV NAUSEA/VOMITING Last administered on 12/29/18at 12:54; Admin Dose 4 MG; Start 12/28/18 at 03:30 Acetaminophen (Tylenol Tab) 650 mg Q6H PRN PO .PAIN 1-3 OR TEMP Last administered on 12/31/18 17:39; Admin Dose 650 MG; Start 12/28/18 at 03:30 Morphine Sulfate (morphine) 2 mg Q4H PRN IV SEVERE PAIN LEVEL 7-10 Last administered on 12/30/18 00:53; Admin Dose 2 MG; Start 12/28/18 at 10:00 Sucralfate (Carafate Susp) 1 gm QID PO Last administered on 01/01/19 09:06; Admin Dose 1 GM; Start 12/28/18 at 13:00 Pantoprazole (Protonix Tab) 40 mg BID@,18 PO Last administered on 01/01/19 06:53; Admin Dose 40 MG; Start 12/28/18 at 18:00 Ferrous Sulfate (Ferrous Sulfate (Ec)) 325 mg DAILY PO Last administered on 01/01/19 09:06; Admin Dose 325 MG; Start 12/31/18 at 09:00 Sodium Chloride (Deep Sea) 2 spray BID NASAL Last administered on 12/31/18 21:35; Admin Dose 2 SPRAY; Start 12/31/18 at 21:00 Cephalexin (Keflex) 500 mg BID PO ; Start 01/01/19 at 09:30 USMAN MAN MD Jan 01, 2019 09:42
[2019-01-01] MEDS ORDERED: SUCR1TAB56 PO (09:46)
[2019-01-01] MEDS ORDERED: FER325 PO (09:46)
[2019-01-01] MEDS ORDERED: PANT40TA4 PO (09:46)
[2019-01-01] MEDS ORDERED: CEPH500C PO (09:46)
--- NOTE | 2019-01-01 09:51 | PDOCDIS ---
Discharge Instructions DIAGNOSIS Discharge Diagnosis 1. Multiple small gastric ulcers- stable 2. UTI 3, Anemia. iron deficiency CONDITION [id number] Patient Condition: [id number] Stable HOME CARE INSTRUCTIONS: [id number] Diet Instructions: [id number] Regular ACTIVITY: [id number] Activity Restrictions: [id number] No Restrictions FOLLOW UP/APPOINTMENTS Follow-up Plan 1. Follow up with your primary care physician in 1-2 weeks 2. Follow up with Dr. Allen GI. Please call the office to schedule a repeat endoscopy in 8 weeks to evaluate if your ulcers are healing 3. Continue Pantoprazole twice a day for 6 weeks total. Next dose is tonight, 01/01 4. continue on Carafate four times a day for the next 4 weeks. You were given the medication at 9am, 12pm, 5pm, and 9pm daily 5. Continue on Keflex twice a day to complete your prescription. Your next dose is tonight, 01/01. You have already completed 4 days of antibiotics while in the hospital 6. If experiencing any concerning symptoms, please go to the nearest emergency department 7. Avoid NSAIDs, spicy, or acidic food which will worsen your reflux and ulcers REFERRALS Other Referrals Isabel Allen MD Specialty Gastroenterology Comments Office Address [id number] [address] Office USMAN MAN MD Jan 01, 2019 09:51
--- NOTE | 2019-01-01 17:06 | DS ---
Date/Time of Note Date/Time of Note DATE: 01/01/19 TIME: 17:04 Discharge Summary Admission/Discharge Info Admit Date/Time Dec 28, 2018 at 01:16 Discharge Date/Time Jan 01, 2019 at 13:15 Discharge Diagnosis 1. Multiple small gastric ulcers- stable 2. UTI 3, Anemia. iron deficiency Patient Condition: Stable Consults GI- Dr. Allen Procedures EGD 12/28/2018 Multiple small gastric ulcerations with no stigmata of recent bleeding, no visible vessel. Rule out H. pylori infection, biopsies obtained. Otherwise normal EGD. Gastric ulcer biopsy: -- Chronic gastritis, moderate to severe, involving oxyntopyloric and pyloric mucosa. -- No Helicobacter organisms are identified in a Giemsa stain (positive control concurrently reviewed). -- Isolated lymphoid aggregates in the lamina propria, without lymphoepithelial lesions. -- There is no evidence of malignancy. Hx of Present Illness Patient is a 33-year-old female with no significant past medical history who initially presented on outside hospital complaining of abdominal pain. Pain is mostly centered in the epigastric area. She reported that she has been taking NSAIDs. FOBT was positive at the outside facility. She was transferred to [facility] for insurance reason. Hospital Course Patient was started on IV antibiotics for UTI and evaluated by GI for evaluation of epigastric pain and +FOBT. EGD was performed with findings of small gastric ulcers. She was started on PPI and epigastric discomfort improved. She was able to tolerate PO intake. urine cultures returned with no growth and patient was transitioned from IV Rocephin to PO Keflex. Vitals remained stable and presenting symptoms improved significantly. Patient was discharged home in good condition. Home Meds Active Scripts Sucralfate* (Carafate*) 1 Gm Tab, 1 GM PO Q6 for 24 Days, #96 TAB Prov:USMAN MAN MD 01/01/19 Pantoprazole* (Pantoprazole*) 40 Mg Tablet.dr 40 MG PO BID@06,18 for 39 Days, #77 TAB next dose tonight 01/01 Prov:USMAN MAN MD 01/01/19 Ferrous Sulfate* (Ferrous Sulfate*) 325 Mg Tabec, 325 MG PO DAILY for 30 Days, #30 TAB Prov:USMAN MAN MD 01/01/19 Cephalexin* (Cephalexin*) 500 Mg Capsule, 500 MG PO BID for 3 Days, #5 CAP Next dose tonight, 01/01 Prov:USMAN MAN MD 01/01/19 Follow-up Plan 1. Follow up with your primary care physician in 1-2 weeks 2. Follow up with Dr. Allen, GI. Please call the office to schedule a repeat endoscopy in 8 weeks to evaluate if your ulcers are healing 3. Continue Pantoprazole twice a day for 6 weeks total. Next dose is tonight, 01/01 4. continue on Carafate four times a day for the next 4 weeks. You were given the medication at 9am, 12pm, 5pm, and 9pm daily 5. Continue on Keflex twice a day to complete your prescription. Your next dose is tonight, 01/01. You have already completed 4 days of antibiotics while in the hospital 6. If experiencing any concerning symptoms, please go to the nearest emergency department 7. Avoid NSAIDs, spicy, or acidic food which will worsen your reflux and ulcers Primary Care Provider [facility] Time spent on discharge: > 30 minutes USMAN MAN MD Jan 01, 2019 17:06
== END 2019-01-01 13:15 | disposition home or self-care (01) | DRG 384 ==
LOC: 6WM 12-28 01:16 → MS1 12-29 14:50
PROVIDERS: ADMIT Internal Medicine; ATTEND Internal Medicine
PROC: 0DB68ZZ Excision of Stomach, Via Natural or Artificial Opening Endoscopic (ICD-10-PCS; principal; 2018-12-28 10:30)
DX: K25.9 Gastric ulcer, unspecified as acute or chronic, without hemorrhage or perforation (principal); N39.0 Urinary tract infection, site not specified; R19.5 Other fecal abnormalities; R10.13 Epigastric pain; K27.9 Peptic ulcer, site unspecified, unspecified as acute or chronic, without hemorrhage or perforation; Z79.1 Long term (current) use of non-steroidal anti-inflammatories (NSAID); D50.9 Iron deficiency anemia, unspecified
CPT/HCPCS: 80048; 80053; 80069; 81001; 82270; 83540; 83735; 84100; 85025; 87086; 88305; 88312; C9113; J0696; J2270; J2405; J2765; J3480; J7030; J7042